=== PATIENT | female | born 1995 | race Caucasian/White ===

== ENCOUNTER 2020-05-01 04:08 | Emergency (ER) | payer SELFPAY ==
[2020-05-01] MEDS ORDERED: [UNRECOGNIZED DRUG - CODE] IU (05:02)
[2020-05-01] MEDS ORDERED: PERCOCET 325 MG1 TA2 PO (05:36)
[2020-05-01] MEDS ORDERED: CLEOCIN HCL150 M1 PO (05:36)
[2020-05-01 06:59] VITALS: BP 109/79
== END 2020-05-01 06:17 | disposition home or self-care (01) ==
LOC: ED 04:08
DX: K08.89 Other specified disorders of teeth and supporting structures (principal)